=== PATIENT | female | born 1985 | race Caucasian/White ===

== ENCOUNTER 2016-07-30 11:45 | Outpatient (CLI) | payer OTHER | END 2016-07-30 23:59 | DX: L60.3 Nail dystrophy (principal) ==

== ENCOUNTER 2016-08-24 16:14 | Outpatient (CLI) | payer OTHER | END 2016-08-24 16:15 | disposition home or self-care (01) | DX: Z00.00 Encounter for general adult medical examination without abnormal findings (principal) ==

== ENCOUNTER 2022-06-30 08:00 | Outpatient (CLI) | payer OTHER | END 2022-06-30 23:59 | disposition home or self-care (01) | LOC: LAB.N 08:00 | PROVIDERS: ATTEND Registered Nurse | DX: R30.0 Dysuria (principal) | CPT/HCPCS: 87086 ==